=== PATIENT | male | born 1955 | race Caucasian/White ===

== ENCOUNTER 2017-12-26 08:35 | Inpatient (IN) | payer OTHER ==
[~2017-12-26] VITALS: Ht 180.3 cm; Wt 95.0 kg
[2017-12-26] MEDS ORDERED: FOLIC ACID1 M1 PO (09:52)
[2017-12-26] MEDS ORDERED: PANTOPRAZOLE SO40 M1 PO (09:53)
[2017-12-26] MEDS ORDERED: B-1100 MG PO (09:53)
[2017-12-26] MEDS ORDERED: AMLODIPINE BESY10 M1 PO (09:53)
[2017-12-26] MEDS ORDERED: ATORVASTATIN CA80 M1 PO (09:54)
[2017-12-26] MEDS ORDERED: ASPIRIN EC81 M1 PO (09:54)
[2017-12-26] MEDS ORDERED: CARVEDILOL12.5 M1 PO (09:54)
[2017-12-26] MEDS ORDERED: BRILINTA90 M1 PO (09:54)
[2017-12-26] MEDS ORDERED: LISINOPRIL40 M1 PO (09:55)
[2017-12-26] MEDS ORDERED: LEVOTHYROXINE100 MC1 PO (09:55)
[2017-12-26] MEDS ORDERED: ESCITALOPRAM OX10 MG PO (09:55)
[2017-12-26] MEDS ORDERED: SPIRONOLACTONE25 M1 PO (09:56)
--- NOTE | 2017-12-26 10:02 | ED GI/GU/ABDOMINAL COMPLAINT ---
History of Present Illness General Chief Complaint: Abdominal Pain/Flank Pain Stated Complaint: BIBA ABD PAIN Source: patient Exam Limitations: no limitations Vital Signs & Intake/Output Vital Signs & Intake/Output Vital Signs Date Time Temp Pulse Resp B/P B/P Pulse O2 O2 Flow FiO2 Mean Ox Delivery Rate 12/28 1105 52 156/78 12/28 0817 44 168/98 12/28 0817 44 168/98 12/28 0817 44 168/98 12/28 0733 97.4 31 16 112/64 98 12/27 2109 97.9 44 18 170/80 99 Room Air 12/27 1445 97.7 64 20 142/80 100 Room Air ED Intake and Output 12/28 0000 12/27 1200 Intake Total 2790 1720 Output Total Balance 2790 1720 Intake, IV 2430 1600 Intake, Oral 360 120 Number 6 Bowel Movements Patient 210 lb Weight Allergies Coded Allergies: No Known Allergies (12/26/17) Reconcile Medications Amlodipine Besylate 10 MG TABLET 1 TAB PO DAILY HEART (Reported) Aspirin (Ecotrin*) 81 MG TABLET.DR 1 TAB PO DAILY HEART HEALTH (Reported) Atorvastatin Calcium 80 MG TABLET 1 TAB PO DAILY CHOLESTEROL (Reported) Carvedilol 12.5 MG TABLET 1 TAB PO BID HEART (Reported) Escitalopram Oxalate 10 MG TABLET 1 TAB PO DAILY MENTAL HEALTH (Reported) Folic Acid 1 MG TABLET 1 TAB PO DAILY VITAMIN SUPPORT (Reported) Levothyroxine Sodium 100 MCG TABLET 1 TAB PO DAILY AC THYROID (Reported) Lisinopril 40 MG TABLET 0.5 TAB PO DAILY HEART (Reported) Pantoprazole Sodium 40 MG TABLET.DR 1 TAB PO DAILY ACID REFLUX (Reported) Spironolactone 25 MG TABLET 1 TAB PO BID WATER RETENTION (Reported) Thiamine HCl (B-1) 100 MG TABLET 1 TAB PO DAILY VITAMIN SUPPORT (Reported) Ticagrelor (Brilinta) 90 MG TABLET 1 TAB PO BID BLOOD THINNER (Reported) Triage Note: PT BIBA TO TRIAGE FOR ABD PAIN. PT STATES HE WAS ADMITTED AT [facility] FOR PANCREATITIS, WAS DISCHARGED HOME. SINCE BEING HOME HAS HAD CONTINUED ABD PAIN WITH N/V/D. Triage Nurses Notes Reviewed? yes Onset: Gradual Duration: week(s): Timing: recent history Quality/Severity: moderate Location: periumbilical HPI: 62-year-old male with history of alcoholism, hypertension presents emergency department complaining of persistent abdominal pain, nausea, vomiting, diarrhea since discharge from [facility] yesterday. Patient states he was admitted at [facility] for 6 days for alcohol detox. Patient states that they told him he had pancreatitis at that time as well. He states he has not been able to tolerate PO for greater than 6 days. Patient states that yesterday when they discharged him he did not feel ready to go home as he was still not tolerating PO. Patient states he went home and had persistent symptoms and then presented here to the emergency department. No history of pancreatitis in the past. He denies physical consumption since prior to his visit at [facility]. He denies fevers, chills. (Lenore Yo) Past History Travel History Traveled to [facility] past 21 day No Medical History Any Pertinent Medical History? see below for history Cardiovascular: hypertension, hyperlipidemia, myocardial infarction Gastrointestinal: pancreatitis Surgical History Surgical History: non-contributory Psychosocial History What is your primary language Portuguese Tobacco Use: Quit >30 days ago ETOH Use: denies use Illicit Drug Use: denies illicit drug use Family History Hx Contributory? No (Lenore Yo) Review of Systems Review of Systems Constitutional: Reports: no symptoms. EENTM: Reports: no symptoms. Respiratory: Reports: no symptoms. Cardiovascular: Reports: no symptoms. GI: Reports: see HPI. Genitourinary: Reports: no symptoms. Musculoskeletal: Reports: no symptoms. Skin: Reports: no symptoms. Neurological/Psychological: Reports: see HPI. Hematologic/Endocrine: Reports: no symptoms. Immunologic/Allergic: Reports: no symptoms. All Other Systems: Reviewed and Negative (Lenore Yo) Physical Exam Physical Exam General Appearance: well developed/nourished, no apparent distress, alert, awake Head: atraumatic, normal appearance Eyes: Bilateral: normal appearance. Ears, Nose, Throat, Mouth: hearing grossly normal Neck: normal inspection, supple, full range of motion Respiratory: normal breath sounds, no respiratory distress, lungs clear Cardiovascular: regular rate/rhythm Gastrointestinal: normal bowel sounds, soft, no organomegaly, periumbilical tenderness, no ecchymosis Back: normal inspection, normal range of motion Extremities: normal range of motion Neurologic/Psych: awake, alert, oriented x 3 Skin: intact, normal color, warm/dry Core Measures ACS in differential dx? No Sepsis Present: No Sepsis Focused Exam Completed? No (Margie PRADOLenore Benz) Progress Differential Diagnosis: bowel obstruction, cholecystitis, gastritis, hepatitis, hernia, inflamm bowel dis, pancreatitis, peptic ulcer, PUD/GERD, SBO Plan of Care: Orders Procedure Date/time Status Lab Add-on Test 12/28 599 Active Current Medications Sig/Juanita Start time Last Medication Dose Stop Time Status Admin Belladonna Alkaloids/ 1 TAB FOUR TIMES A DAY 12/27 2100 AC 12/28 Phenobarbital 1002 () Pantoprazole Sodium 40 MG BID 12/27 2100 AC 12/28 (Protonix) 0817 Sucralfate 1,000 MG 4 TIMES/DAY 12/27 2100 AC 12/28 (Carafate) 0819 Magnesium Chloride 64 MG DAILY 12/27 1615 AC 12/28 (Slow-Mag) 0819 Amlodipine Besylate 10 MG DAILY 12/27 0900 AC 12/28 (Norvasc) 0817 Aspirin Buffered 81 MG DAILY 12/27 0900 AC 12/27 (Ecotrin) 0902 Atorvastatin Calcium 80 MG DAILY 12/27 0900 AC 12/28 (Lipitor) 0819 Enoxaparin Sodium 40 MG DAILY 12/27 0900 AC 12/27 (Lovenox) 0859 Escitalopram Oxalate 10 MG DAILY 12/27 0900 AC 12/28 (Lexapro) 0819 Folic Acid 1 MG DAILY 12/27 0900 AC 12/28 (Folic Acid) 0819 Lisinopril 20 MG DAILY 12/27 0900 AC 12/28 (Prinivil) 0817 Thiamine HCl 100 MG DAILY 12/27 0900 AC 12/28 (Vitamin B1) 0819 Levothyroxine Sodium 0.1 MG DAILY AC 12/27 0700 AC 12/28 (Synthroid) 0500 Carvedilol 12.5 MG BID 12/26 2100 AC 12/27 (Coreg) 0902 Melatonin 5 MG AT BEDTIME 12/26 2100 AC 12/27 (Melatonin) 2040 Spironolactone 25 MG BID 12/26 2100 AC 12/28 (Aldactone) 0819 Ticagrelor 90 MG BID 12/26 2100 AC 12/27 (Brilinta) 2040 Acetaminophen 1,000 MG Q8P PRN 12/26 1445 AC 12/28 (Ofirmev) 1123 Lactated Ringer's 1,000 ML Q6H 12/26 1445 AC 12/28 (Lactated Ringers) 0810 Ondansetron HCl 4 MG Q6P PRN 12/26 1445 12/28 (Zofran) 1059 Laboratory Tests 12/28/17 1141: Anion Gap 17 H, Estimated GFR > 60, BUN/Creatinine Ratio 7.5, Magnesium 1.0 L Patient's labs show elevated lipase greater than 3 times up her normal limit. This is consistent with pancreatitis. Patient reports no history of previous pancreatitis. Patient has already gone through alcohol detox. The patient is not tolerating PO, cannot take his home medication, persistent abdominal pain, vomiting, diarrhea. Given these findings hospital admission is necessary for further IV fluids, IV antiemetics, possible GI consult, repeat labs. Spoke with Dr. Stover regarding general medicine admission Diagnostic Imaging: Viewed by Me: CT Scan. Discussed w/RAD: CT Scan. Radiology Impression: PATIENT: RAVEN CUELLAR PRESENT AGE: 62 PATIENT ACCOUNT NO: [id number] : 55 LOCATION: [facility] ORDERING PHYSICIAN: Lenore PRADO SERVICE DATE: 12/26/17 EXAM TYPE: CAT - CT ABD & PELVIS W IV CONTRAST EXAMINATION: CT ABDOMEN AND PELVIS WITH CONTRAST CLINICAL INFORMATION: Umbilical abdominal pain. Elevated lipase. Presumptive diagnosis of rule out pancreatitis, cholecystitis. COMPARISON: None. TECHNIQUE: Multidetector CT volumetric acquisition of the abdomen and pelvis was performed after the administration of 95 mL of Optiray 320. The data set was reformatted in the sagittal and coronal planes and reviewed on an independent workstation. DLP: 571.06 mGy-cm. FINDINGS: LOWER CHEST: Included lung bases unremarkable. LIVER, GALLBLADDER, BILIARY TREE: Liver normal size and attenuation. No focal cystic or solid mass or intra-or extrahepatic ductal dilatation. Hepatic and portal veins patent. Gallbladder partially distended and within normal limits. Gallbladder wall measures up to 2 mm in thickness. No pericholecystic fluid is seen and no radiopaque calculi are seen within the gallbladder. PANCREAS: Normal. No ductal dilatation, mass, or peripancreatic stranding. SPLEEN: Normal size and there is a 0.8 cm low-attenuation mass in the inferior aspect of the spleen (series 2, image 34), too small to further characterize but possibly a small cyst. Splenic vein patent. ADRENAL GLANDS AND KIDNEYS: Adrenal glands normal. Kidneys bilaterally symmetric in size and function. There is a 1.1 cm mid left renal cortical low-attenuation mass (series 2, image 34) with mean attenuation values of 20.7 Hounsfield units. This is indeterminate in etiology and may represent a hyperdense cyst. In addition, in the lower pole of the right kidney, a 0.9 cm fluid attenuation mass is seen, consistent with a cyst. No suspicious focal mass, hydronephrosis, nephrolithiasis or perinephric stranding. URETERS AND BLADDER: Ureters decompressed and within normal limits. Bladder completely decompressed and not adequately assessed. PELVIC ORGANS: Unremarkable. GASTROINTESTINAL TRACT: Normal. Small and large bowel loops decompressed. Appendix in right lower quadrant is at the upper limits of normal, measuring up to 7 mm in cross-sectional diameter. No periappendiceal fat stranding or edema is noted. The appendix is fluid-filled. No appendicolith is seen. LYMPHOVASCULAR STRUCTURES: Abdominal aorta normal in caliber. No periaortic collections. Moderate atherosclerotic calcifications of the abdominal aorta and branch vessels, including the renal arteries bilaterally is seen. No abdominal or pelvic adenopathy or free fluid collection. BONES: Moderate vertebral spondylosis is seen in the lower thoracic spine and in the mid and lower lumbar spine. Moderate degenerative disc disease is seen at L4-L5 and L5- S1. Moderate facet arthropathy is seen. There is a small focal cortical defect in the right iliac bone, most consistent with prior bone harvesting site. IMPRESSION: 1. No evidence of acute pancreatitis. The pancreas appears unremarkable. 2. No evidence of acute cholecystitis. No radiopaque calculi are seen and no biliary dilatation is noted. Gallbladder wall thickness is borderline normal. 3. Small low-attenuation mass in the inferior spleen, too small to characterize, possibly a small cyst. 4. Benign right renal cyst. Additional indeterminate 1.1 cm mid left renal mass is seen, possibly a hyperdense cyst. Further assessment with renal ultrasound can be attempted. If that is unsuccessful, or if the mass remains uncharacterized, further assessment with MRI scan will be needed. 5. Moderate atherosclerotic vascular calcifications. DICTATED BY: Darling MAYFIELD,Bibi Herrera DATE/TIME DICTATED:12/26/171399 LIE DETECTOR OPERATOR:LEXIS DATE/TIME TRANSCRIBED:12/26/171399 CONFIDENTIAL, DO NOT COPY WITHOUT APPROPRIATE AUTHORIZATION. <Electronically signed in Other Vendor System> SIGNED BY: Bibi Hastings MD N. 12/26/17 1434 Initial ED EKG: none (Lenore Yo) Departure Departure Disposition: STILL A PATIENT Condition: Stable Clinical Impression Primary Impression: Alcoholic pancreatitis Qualifiers: Chronicity: acute Acute pancreatitis complication: unspecified Qualified Code: K85.20 - Alcohol induced acute pancreatitis without necrosis or infection Secondary Impressions: Abdominal pain Qualifiers: Abdominal location: periumbilical Qualified Code: R10.33 - Periumbilical pain Hypokalemia Nausea vomiting and diarrhea Referrals: Patient Has No Primary Care Dr (PCP/Family) Departure Forms: Customer Survey General Discharge Information Admission Note Spoke With: Peter Stover MD Documentation of Exam: Documentation of any treatments & extenuating circumstances including Concerns Regarding Discharge (functional status, medication knowledge or non-compliance, living conditions, etc.) that warrant an admission rather than observation: [ Alcoholic pancreatitis with intractable abdominal pain, nausea, vomiting, diarrhea, patient is not tolerating PO, cannot take his home meds, requires IV fluids, IV anti-medics, possible GI consult, premature discharge medically unsafe] (Lenore Yo) PA/[employer] DES[employer] Co-Sign Statement Statement: ED Attending supervision documentation- [] I saw and evaluated the patient. I have also reviewed all the pertinent lab results and diagnostic results. I agree with the findings and the plan of care as documented in the PA's/[employer] DES[employer]ER's documentation. [X] I have reviewed the ED Record and agree with the PA's/[employer] DESIGN[employer]'s documentation. [] Additions or exceptions (if any) to the PAs/[employer] DESIGNER's note and plan are summarized below: [] (Dain Pleitez DO) PA/[employer] Co-Sign Statement Statement: ED Attending supervision documentation- [] I saw and evaluated the patient. I have also reviewed all the pertinent lab results and diagnostic results. I agree with the findings and the plan of care as documented in the PA's/[employer] DESIGNER's documentation. [X] I have reviewed the ED Record and agree with the PA's/[employer] DESIGNER's documentation. [] Additions or exceptions (if any) to the PAs/[employer] DESIGNER's note and plan are summarized below: [] (Dain Pleitez DO)
[2017-12-26 11:04] LABS: ABSOLUTE BASOPHIL COUNT 0 /CUMM (0.0-0.2); ABSOLUTE EOSINOPHIL COUNT 0.2 /CUMM (0.0-0.7); ABSOLUTE LYMPH COUNT 1.4 /CUMM (1.2-3.4); ABSOLUTE MONOCYTE COUNT 1.4 /CUMM (0.10-0.60); BASOPHIL % 0.2 % (0.0-2.0); EOSINOPHIL % 1.8 % (0-5); GRANULOCYTE % 76.7 % (42.2-75.2); HEMATOCRIT 38.7 % (42-52); MEAN CORPUSCULAR HGB 32.2 PG (27.0-31.0); MEAN CORPUSCULAR HGB CONC 33.4 G/DL (33.0-37.0); MEAN CORPUSCULAR VOLUME 96.2 FL (80.0-94.0); MEAN PLATELET VOLUME 8.2 FL (7.4-10.4); PLATELET COUNT 235 /CUMM (130-400); RBC DISTRIBUTION WIDTH 16.8 % (11.5-14.5); RED BLOOD CELL CT 4.03 /CUMM (4.70-6.10)
--- NOTE | 2017-12-26 13:53 | History & Physical ---
Yumiko Sheppard 12/26/17 1353: General Information and HPI MD Statement: I have seen and personally examined RAVEN CUELLAR and documented this H&P. The patient is a 62 year old M who presented with a patient stated chief complaint of []. Source of Information: patient Exam Limitations: no limitations History of Present Illness: 62 year old male with PMH HTN, HLD, MS (2016 with stenting x2 on ASA and Brilinta) presents after being hospitalized at [facility] for 7 days for presumed treatment of pancreatitis and etoh detox. He was discharged yesterday 12/25 at 17:00 despite feeling that he wasn't well enough to go home. Prior to that admission, he states he had been drinking heavily and experiencing abdominal pain with n/v. He wanted to detox from alcohol and he was advised to go to the ED at [facility]. He was admitted and states he did not eat for 7 days because he could not tolerate liquids or regular food without severe n/v and abdominal pain. He also complains of watery, non-bloody diarrhea that has been present for >7days. He denies any antibiotic use within the last 2 months. While in the hospital, he was detoxed from alcohol with ativan taper. On 12/25 he was told an US was negative for any pathology and his blood work 'looked good'. Upon discharge he states he went home and stayed on the couch watching TV. At 3am he woke up with severe n/v and abdominal pain which has been constant until coming to [place] ED and receiving IV tylenol. He denies any alcohol consumption since being discharged from [facility]. He has been unable to tolerate even water and has decreased appetite. He denies fever, chills, cough, headache, dysuria. Allergies/Medications Allergies: Coded Allergies: No Known Allergies (12/26/17) Home Med list Amlodipine Besylate 10 MG TABLET 1 TAB PO DAILY HEART (Reported) Aspirin (Ecotrin*) 81 MG TABLET.DR 1 TAB PO DAILY HEART HEALTH (Reported) Atorvastatin Calcium 80 MG TABLET 1 TAB PO DAILY CHOLESTEROL (Reported) Carvedilol 12.5 MG TABLET 1 TAB PO BID HEART (Reported) Escitalopram Oxalate 10 MG TABLET 1 TAB PO DAILY MENTAL HEALTH (Reported) Folic Acid 1 MG TABLET 1 TAB PO DAILY VITAMIN SUPPORT (Reported) Levothyroxine Sodium 100 MCG TABLET 1 TAB PO DAILY AC THYROID (Reported) Lisinopril 40 MG TABLET 0.5 TAB PO DAILY HEART (Reported) Pantoprazole Sodium 40 MG TABLET.DR 1 TAB PO DAILY ACID REFLUX (Reported) Spironolactone 25 MG TABLET 1 TAB PO BID WATER RETENTION (Reported) Thiamine HCl (B-1) 100 MG TABLET 1 TAB PO DAILY VITAMIN SUPPORT (Reported) Ticagrelor (Brilinta) 90 MG TABLET 1 TAB PO BID BLOOD THINNER (Reported) Past History Travel History Traveled to [place] past 21 day No Medical History Cardiovascular: hypertension, hyperlipidemia, myocardial infarction Gastrointestinal: pancreatitis Surgical History Surgical History: cervical surgeries x4 with hardware placement Past Family/Social History Psychosocial History Where do you live? Home Services at Home: None Primary Language: [place] Smoking Status: Former Smoker (quit post MS in 2016) ETOH Use: alcoholic Illicit Drug Use: heroin, h/o heroin use 25 years ago. Opiod pill addiction Employment History Employment Retired Review of Systems Review of Systems Constitutional: Denies: chills, fever, malaise. EENTM: Denies: blurred vision, visual changes. Cardiovascular: Denies: chest pain, edema, palpitations. Respiratory: Reports: short of breath. Denies: cough, sputum production. GI: Reports: abdominal pain, diarrhea, nausea, vomiting. Denies: bloating, constipation. Genitourinary: Denies: dysuria, hematuria, pain. Musculoskeletal: Reports: no symptoms. Skin: Reports: no symptoms. Neurological/Psychological: Reports: no symptoms. Exam & Diagnostic Data Last 24 Hrs of Vital Signs/I&O Vital Signs Date Time Temp Pulse Resp B/P B/P Pulse O2 O2 Flow FiO2 Mean Ox Delivery Rate 12/26 1145 88 20 118/74 99 Room Air 12/26 0845 98.6 94 20 114/76 99 Room Air Intake & Output 12/26 1600 12/26 0800 12/26 0000 Intake Total 0 Output Total Balance 0 Intake, Oral 0 Number 5 Bowel Movements Patient 200 lb Weight Weight Estimated Measurement Method Physical Exam General Appearance Alert, Oriented X3, Cooperative, No Acute Distress Skin No Rashes, ecchymosis BUE including dorsum of hands Skin Temp/Moisture Exam: Warm/Dry HEENT Atraumatic, PERRLA Neck Supple Cardiovascular Regular Rate, Normal S1, Normal S2, No Murmurs Lungs Clear to Auscultation Abdomen Normal Bowel Sounds, Soft, ttp LUQ;periumbilical area Extremities No Edema, Normal Pulses Assessment/Plan Assessment: 62 year old male with PMH HTN, HLD, MS (2016 with stenting x2 on ASA and Brilinta) presents after being hospitalized at [facility] for 7 days for presumed treatment of pancreatitis and etoh detox. He was discharged 12/25 at 17:00 with return of symptoms: n/v/d and abdominal pain at 3am 12/26 for which he came to [place] ED. Work up in the ED shows elevated amylase and lipase, hypokalemia and negative for EtoH. CT abd/pelv is negative for acute pancreatitis or cholecystitis. Patient has clinical presentation and laboratory values consistent with pancreatitis and concerning for concomitant possible c-diff infection. Patient will be admitted to general medicine service for further care of the following problems: Problem List: 1. Acute Pancreatitis 2. Persistent diarrhea 3. Hypokalemia Admission Data: T98.6 P94 RR20 BP114/76 [id number] Significant Labs: WBC 13.0, K3.3, T. Bili 1.4, Amylase 223, Lipase 2797, EtoH<10 CT abd/pelv:1. No evidence of acute pancreatitis. The pancreas appears unremarkable. 2. No evidence of acute cholecystitis. #Acute pancreatitis-likely 2/2 alcohol use disorder vs hypertriglyceridemia vs idiopathic -IVF hydration -NPO -Pain control: IV tylenol, Ketorolac (will reserve opiate use as last resort given patient's h/o opiod abuse including IV heroin and methadone) -Triglyceride level 300s (making this as etiology of pancreatitis less likely since <500) -Will obtain baseline EKG for QT status in anticipation of antiemetic use -Will obtain records from [facility] for recent hospitalization #Persistent diarrhea-possible c-diff vs gastritis -stool culture and c-diff toxin -IVF hydration -monitor electrolytes for possible dehydration #Hypokalemia-likely 2/2 >7days of diarrhea -monitor and replete as necessary #Social issues for etoh abuse - consult for desired rehab placement -Alcohol abuse: no need for benzodiazepine or concern for withdrawal given recent ativan taper detox regimen at [facility] for the past 7 days Diet: NPO DVT prophylaxis: ALPS/ambulation/lovenox Code status: FC As Ranked By This Provider Problem List: 1. Abdominal pain Qualifiers Abdominal location: periumbilical Qualified Code: R10.33 - Periumbilical pain 2. Nausea vomiting and diarrhea 3. Hypokalemia 4. Pancreatitis Core Measures/Misc (02/18) Acute Coronary Syndrome ACS Diagnosis: No Congestive Heart Failure Congestive Heart Failure Diagnosis No Cerebrovascular Accident CVA/TIA Diagnosis: No VTE (View Protocol) VTE Risk Factors Age>40 No Mechanical VTE Prophylaxis d/t N/A MechProphylax Ordered No VTE Pharm Prophylaxis d/t NA PharmProphylax ordered Sepsis (View protocol) Sepsis Present: No If YES complete Sepsis Event Note If YES complete Sepsis Event Note Cris [place],[facility] 12/26/17 1446: Core Measures/Misc (02/18) Sepsis (View protocol) If YES complete Sepsis Event Note If YES complete Sepsis Event Note Resident Review Statement Resident Statement: examined this patient, discussed with internet marketing strategist, agreed with internet marketing strategist, discussed with family, reviewed EMR data (avail), discussed with nursing , discussed with case mgmt, reviewed images, amended to note Other Findings: Mr. Cuellar is a 62-year-old male with past medical history of alcoholism, IV drug abuse, hypertension, hyperlipidemia, and myocardial infarction status post stents who presents with abdominal pain. The patient was discharged from [facility] yesterday after being detoxed from alcohol. The patient was at [facility] for about 1 week was treated with Lorazepam for his detox. The patient says he was discharged yesterday despite not feeling well and not tolerating a diet. He says that they did a workup for pancreatitis that was negative. After he went home yesterday, he went to bed and then woke up at 3 AM with "ripping" abdominal pain. He denies using any alcohol since discharge. He had previously drank 1-2 pints of vodka per day. Patient was previously on methadone but stopped going to the clinic in November because he had issues with how they treated him. He then used alcohol to treat his pain. Patient further describes profuse watery diarrhea, nausea, and vomiting including dry heaving. He denies any dysuria. He is a former smoker and has a history of IV drug abuse in his 20s. On presentation, vital signs were T 98.6, HR 94, RR 20, BP 114/76, saturating 90 % on room air. General: Patient appears stated age, alert and orientedx3. HEENT: PERRL. No goiter. No palpable lymph nodes. Cardiovascular: Regular rate and rhythm, no murmurs, rubs, or gallops. Lungs: Clear to auscultation bilaterally. Abdomen: Normal bowel sounds. Tenderness to palpation periumbilically skin: No rashes. Neuro: CN II-XII intact without any focal deficits. Ext: No edema, pulses normal. Laboratories were significant for WBC 13.0, hemoglobin 12.9, MCV 96.2, potassium 3.3, glucose 156, total bilirubin 1.4, LFTs otherwise negative, lipase 2797. CT abdomen/pelvis is no evidence of acute pancreatitis or acute cholecystitis with incidental cyst on spleen and kidney.. He will be admitted to general medicine and treated for the following problems: 1. Acute pancreatitis 2. Watery diarrhea #Acute pancreatitis: Patient has history of alcohol abuse status post discharge from [facility] after being treated for alcohol withdrawal and detoxification now presenting with acute worsening of abdominal pain, elevated lipase, but negative imaging for acute pancreatitis. Overall, his signs and symptoms point to pancreatitis despite the negative imaging. He is nontoxic without signs of complications at this time. -IV fluid hydration -Pain control -N.p.o. -Ondansetron #Watery diarrhea: Patient has history of profuse watery diarrhea. Despite not receiving antibiotics, this recent hospitalization puts him at risk for C. difficile versus other infectious etiology. -C. difficile and stool culture -IV fluid hydration as above #Chronic medical problems -Continue other home medications -Consider social work consult for alcohol abuse history and drug history DVT prophylaxis with enoxaparin N.p.o. Full code Peter Stover MD 12/26/17 4857: Core Measures/Misc (02/18) Sepsis (View protocol) If YES complete Sepsis Event Note If YES complete Sepsis Event Note Attending MD Review Statement Attending Statement Attending MD Statement: examined this patient, discuss w/resident/PA/SENIOR CLINICAL STUDY MANAGER, agreed w/resident/PA/SENIOR CLINICAL STUDY MANAGER, discussed with family, reviewed EMR data (avail), reviewed images, amended to note Attending Assessment/Plan: The patient veronica 62 yo male with h/o HTN, HL, CAD (s/p MS and stents x 2 2015), h /o EtOH dependence and abuse, former Methadone use (stopped 11/19) who presented in the [place] Ed with c/o abdominal pain, nausea/vomiting, and diarrhea that had been ongoing since being discharged from [facility] 12/25. His daughter is an RN at [employer] and advised him to come here as he was unable to keep down his medications, etc. At [facility] he had undergone alcohol detox and treatment for pancreatitis. His recent history included presentation at [facility] for residential IOP treatment (was there 1 day) with subsequent transfer to [facility] for detox and also ?cholecystitis. He went home and began drinking again and this lead to subsequent [facility] admission. He was receiving IV tylenol in ED and initially this helped his pain. Stated diarrhea continued. He denied fever, dyspnea, chest pain, or other symptoms. Physical Exam: VS: T 98.6, P 94, R 20, BP 114/76, PO 99% RA HEENT: eyes- PERRLA, EOMI, sclera- non-icteric marty- dry mucosa Neck: no JVD/+ Chest: diminished BS at bases Cor: RRR nl S1, S2 w/o murm Abd: BS+, softly distended, mild nikkie-umbilical tenderness w/o guarding/rebound (no RUQ/epigastric tenderness) Ext: no edema Neuro: alert & oriented x 3, non-focal exam Labs/Tests- as above Impression/Plan: #Abdominal Pain/Pancreatitis- as noted, lipase is elevated. No CT evidence of significant pancreatitis, however clinical picture fits. Plan: Admit to general medical service. IV hydration, NPO. CT abd/pelvis (done) GI Evaluation (Dr. Garza aware) #Diarrhea/Gastritis- patient has had significant diarrhea. No h/o recent antibiotics or exposures. Plan: Will check stool for C-diff and cultures, etc. As above, IV hydration. Zofran for nausea. #Hypokalemia- mild, secondary to vomiting/diarrhea. Plan: Replete potassium and follow. #h/o EtOH Dependence/Abuse- was detoxed at [facility] just prior to this admission. His social insurance analyst at [facility] ([facility]) had arranged detox program in [place] and subsequent halfway program. He was scheduled to go to [place] tomorrow. Plan: Social service consult at [place]- to communicate with his social insurance analyst at [facility] to coordinate outpatient program when stable from medical standpoint. Agree with thiamine, folic acid etc. #CAD/HTN/Hyperlipidemia- no c/o at present. Plan: Continue Lisinopril, Amlodipine, Atorvastatin, Carvedilol, Brilinta, Spironolactone, ASA. #Depression- ? bipolar. Unclear diagnosis at [facility]. Plan: Will obtain [facility] records. Continue Escitalopram. #Hypothyroid- on Levothyroxine. Plan: Continue Levothyroxine.
--- NOTE | 2017-12-26 14:34 | CT SCAN REPORT ---
EXAMINATION: CT ABDOMEN AND PELVIS WITH CONTRAST CLINICAL INFORMATION: Umbilical abdominal pain. Elevated lipase. Presumptive diagnosis of rule out pancreatitis, cholecystitis. COMPARISON: None. TECHNIQUE: Multidetector CT volumetric acquisition of the abdomen and pelvis was performed after the administration of 95 mL of Optiray 320. The data set was reformatted in the sagittal and coronal planes and reviewed on an independent workstation. DLP: 571.06 mGy-cm. FINDINGS: LOWER CHEST: Included lung bases unremarkable. LIVER, GALLBLADDER, BILIARY TREE: Liver normal size and attenuation. No focal cystic or solid mass or intra-or extrahepatic ductal dilatation. Hepatic and portal veins patent. Gallbladder partially distended and within normal limits. Gallbladder wall measures up to 2 mm in thickness. No pericholecystic fluid is seen and no radiopaque calculi are seen within the gallbladder. PANCREAS: Normal. No ductal dilatation, mass, or peripancreatic stranding. SPLEEN: Normal size and there is a 0.8 cm low-attenuation mass in the inferior aspect of the spleen (series 2, image 34), too small to further characterize but possibly a small cyst. Splenic vein patent. ADRENAL GLANDS AND KIDNEYS: Adrenal glands normal. Kidneys bilaterally symmetric in size and function. There is a 1.1 cm mid left renal cortical low-attenuation mass (series 2, image 34) with mean attenuation values of 20.7 Hounsfield units. This is indeterminate in etiology and may represent a hyperdense cyst. In addition, in the lower pole of the right kidney, a 0.9 cm fluid attenuation mass is seen, consistent with a cyst. No suspicious focal mass, hydronephrosis, nephrolithiasis or perinephric stranding. URETERS AND BLADDER: Ureters decompressed and within normal limits. Bladder completely decompressed and not adequately assessed. PELVIC ORGANS: Unremarkable. GASTROINTESTINAL TRACT: Normal. Small and large bowel loops decompressed. Appendix in right lower quadrant is at the upper limits of normal, measuring up to 7 mm in cross-sectional diameter. No periappendiceal fat stranding or edema is noted. The appendix is fluid-filled. No appendicolith is seen. LYMPHOVASCULAR STRUCTURES: Abdominal aorta normal in caliber. No periaortic collections. Moderate atherosclerotic calcifications of the abdominal aorta and branch vessels, including the renal arteries bilaterally is seen. No abdominal or pelvic adenopathy or free fluid collection. BONES: Moderate vertebral spondylosis is seen in the lower thoracic spine and in the mid and lower lumbar spine. Moderate degenerative disc disease is seen at L4-L5 and L5-S1. Moderate facet arthropathy is seen. There is a small focal cortical defect in the right iliac bone, most consistent with prior bone harvesting site. IMPRESSION: 1. No evidence of acute pancreatitis. The pancreas appears unremarkable. 2. No evidence of acute cholecystitis. No radiopaque calculi are seen and no biliary dilatation is noted. Gallbladder wall thickness is borderline normal. 3. Small low-attenuation mass in the inferior spleen, too small to characterize, possibly a small cyst. 4. Benign right renal cyst. Additional indeterminate 1.1 cm mid left renal mass is seen, possibly a hyperdense cyst. Further assessment with renal ultrasound can be attempted. If that is unsuccessful, or if the mass remains uncharacterized, further assessment with MRI scan will be needed. 5. Moderate atherosclerotic vascular calcifications.
[2017-12-26 17:16] VITALS: BP 144/68
[2017-12-26 21:18] VITALS: BP 136/70
--- NOTE | 2017-12-26 23:19 | Admission Certification ---
Admission Certification Certification Statement - As attending physician, I certify that at the time of - admission, based on clinical presentation, severity of - symptoms, need for further diagnostic testing and - therapeutic interventions, and risk of adverse outcomes - without in-hospital treatment, in my clinical assessment, - this patient requires an acute hospital stay for a minimum - of two nights or longer. I have also considered psychsocial - factors such as support system, advanced age, financial - issues, cognitive issues, and failed out-patient treatments, - past re-admission history, safety of patient, and lack of - compliance as applicable. Specific rationale supporting this admission is: The patient presents with abdominal pain c/w pancreatitis, gastritis/diarrhea- unable to keep down any meds, etc. Needs admission for IV hydration, NPO, GI eval, CT abd/pel, check stool for c-diff and cultures.
[2017-12-27 06:32] VITALS: BP 160/70
--- NOTE | 2017-12-27 08:13 | PN- Housestaff ---
See Addendum Subjective Follow-up For: acute pancreatitis Complaints: pain scale (0-10), 10/10 abdominal pain Subjective: Patient reports trying to drink broth last night and have n/v and severe abdominal pain. He states he continues to have 10/10 abdominal pain associated with nausea this morning. Denies fever, chills, chest pain, SOB. Review of Systems Constitutional: Reports: see HPI. Objective Last 24 Hrs of Vital Signs/I&O Vital Signs Date Time Temp Pulse Resp B/P B/P Pulse O2 O2 Flow FiO2 Mean Ox Delivery Rate 12/27 0902 56 168/78 12/27 0901 56 168/78 12/27 0900 56 168/12/27 0632 97.7 58 20 160/70 95 Room Air 12/26 2118 98.0 78 18 136/70 98 Room Air 12/26 2004 136/70 12/26 1716 97.6 81 18 144/68 99 Room Air 12/26 1635 98.2 68 20 147/79 99 Room Air 12/26 1145 88 20 118/74 99 Room Air Intake & Output 12/27 1600 12/27 0800 12/27 0000 Intake Total 1720 600 Output Total 600 Balance 1720 0 Intake, IV 1600 600 Intake, Oral 120 Number 1 Bowel Movements Output, Stool 300 Output, Urine 300 Patient 210 lb 200 lb Weight Weight Reported by Patient Measurement Method Physical Exam General Appearance: Alert, Oriented X3, Cooperative, No Acute Distress, patient laying in bed in NAD when I walked in the room though he reports 10/10 pain Skin: No Rashes Skin Temp/Moisture Exam: Warm/Dry HEENT: Atraumatic, PERRLA Neck: Supple Cardiovascular: Regular Rate, Normal S1, Normal S2, No Murmurs Lungs: Clear to Auscultation Abdomen: Normal Bowel Sounds, Soft, originally no TTP while I was interviewing him...then when I aske about abdominal pain and palpated, he guarded. Extremities: No Edema, Normal Pulses Assessment/Plan Assessment: 62 year old male with PMH HTN, HLD, [place] (2016 with stenting x2 on ASA and Brilinta) presents after being hospitalized at [facility] for 7 days for presumed treatment of pancreatitis and etoh detox. He was discharged 12/25 at 17:00 with return of symptoms: n/v/d and abdominal pain at 3am 12/26 for which he came to [place] ED. Work up in the ED shows elevated amylase and lipase, hypokalemia and negative for EtoH. CT abd/pelv is negative for acute pancreatitis or cholecystitis. Patient has clinical presentation and laboratory values consistent with pancreatitis and concerning for concomitant possible c-diff infection. Patient will be admitted to general medicine service for further care of the following problems: Problem List: 1. Acute Pancreatitis 2. Persistent diarrhea 3. Hypokalemia 4. Hypomagnesemia #Acute pancreatitis-likely 2/2 alcohol use disorder vs hypertriglyceridemia vs idiopathic -IVF hydration -NPO -Pain control: IV tylenol, Ketorolac (will reserve opiate use as last resort given patient's h/o opiod abuse including IV heroin and methadone) -Triglyceride level 300s (making this as etiology of pancreatitis less likely since <500) -Baseline EKG for QT status in anticipation of antiemetic use -Awaiting records from [facility] for recent hospitalization #Persistent diarrhea-possible c-diff vs gastritis -stool culture: pending -c-diff toxin: negative -IVF hydration -monitor electrolytes for possible dehydration: replete magnesium and potassium today #Hypokalemia-likely 2/2 >7days of diarrhea -monitor and replete as necessary -3.0 today; will give 40mEq K-dur #Social issues for etoh abuse - consult for desired rehab placement -Alcohol abuse: no need for benzodiazepine or concern for withdrawal given recent ativan taper detox regimen at [facility] for the past 7 days Diet: NPO DVT prophylaxis: ALPS/ambulation/lovenox Code status: FC Problem List: 1. Nausea vomiting and diarrhea 2. Abdominal pain 3. Pancreatitis 4. Hypokalemia 5. Hypomagnesemia Pain Ratin Pain Location: abdomen Pain Goal: Pain 7 or less Pain Plan: see a/p Tomorrow's Labs & Rationales: bep, magnesium
[2017-12-27 14:45] VITALS: BP 142/80
--- NOTE | 2017-12-27 19:31 | Cons- Gastroenterology ---
General Information and HPI Consulting Request Date of Consult: 12/27/17 Requested By: Peter Stover MD Reason for Consult: Abdominal pain, nausea, vomiting Allergies/Medications Allergies: Coded Allergies: No Known Allergies (12/26/17) Home Med List: Amlodipine Besylate 10 MG TABLET 1 TAB PO DAILY HEART (Reported) Aspirin (Ecotrin*) 81 MG TABLET. 1 TAB PO DAILY HEART HEALTH (Reported) Atorvastatin Calcium 80 MG TABLET 1 TAB PO DAILY CHOLESTEROL (Reported) Carvedilol 12.5 MG TABLET 1 TAB PO BID HEART (Reported) Escitalopram Oxalate 10 MG TABLET 1 TAB PO DAILY MENTAL HEALTH (Reported) Folic Acid 1 MG TABLET 1 TAB PO DAILY VITAMIN SUPPORT (Reported) Levothyroxine Sodium 100 MCG TABLET 1 TAB PO DAILY AC THYROID (Reported) Lisinopril 40 MG TABLET 0.5 TAB PO DAILY HEART (Reported) Pantoprazole Sodium 40 MG TABLET.DR 1 TAB PO DAILY ACID REFLUX (Reported) Spironolactone 25 MG TABLET 1 TAB PO BID WATER RETENTION (Reported) Thiamine HCl (B-1) 100 MG TABLET 1 TAB PO DAILY VITAMIN SUPPORT (Reported) Ticagrelor (Brilinta) 90 MG TABLET 1 TAB PO BID BLOOD THINNER (Reported) Current Medications: Current Medications Sig/Juanita Start time Last Medication Dose Route Stop Time Status Admin Acetaminophen 1,000 MG Q8P PRN 12/26 1445 AC 12/27 IV 0953 Amlodipine Besylate 10 MG DAILY 12/27 0900 AC 12/27 PO 0900 Aspirin Buffered 81 MG DAILY 12/27 0900 AC 12/27 PO 0902 Atorvastatin Calcium 80 MG DAILY 12/27 0900 AC 12/27 PO 0902 Carvedilol 12.5 MG BID 12/26 2100 AC 12/27 PO 0902 Enoxaparin Sodium 40 MG DAILY 12/27 0900 AC 12/27 SC 0859 Escitalopram Oxalate 10 MG DAILY 12/27 0900 AC 12/27 PO 0902 Folic Acid 1 MG DAILY 12/27 0900 AC 12/27 PO 0903 Ketorolac 15 MG Q6P PRN 12/26 1430 AC 12/27 Tromethamine IV 1644 Lactated Ringer's 1,000 ML Q6H 12/26 1445 AC 12/27 IV 1757 Levothyroxine Sodium 0.1 MG DAILY AC 12/27 0700 AC 12/27 PO 0603 Lisinopril 20 MG DAILY 12/27 0900 AC 12/27 PO 0901 Magnesium Chloride 64 MG DAILY 12/27 1615 AC 12/27 PO 1643 Magnesium Oxide 400 MG ONE ONE 12/27 1400 DC 12/27 PO 12/27 1401 1539 Melatonin 5 MG AT BEDTIME 12/26 2100 AC 12/26 PO 2117 Morphine Sulfate 4 MG .STK-MED ONE 12/27 0005 DC IM 12/27 0006 Morphine Sulfate 2 MG ONCE ONE 12/26 2330 DC 12/27 IV 12/26 2331 0007 Omeprazole 40 MG DAILY AC 12/27 0700 AC 12/27 PO 0604 Ondansetron HCl 4 MG Q6P PRN 12/26 1445 AC 12/27 IV 1848 Patient Medication 1 ED ONE ONE 12/27 1645 DC 12/27 Teaching ED 12/27 1646 1758 Potassium Chloride 40 MEQ ONCE ONE 12/27 1400 DC 12/27 PO 12/27 1401 1538 Potassium Chloride 60 MEQ ONCE ONE 12/27 1000 DC 12/27 PO 12/27 1001 1034 Spironolactone 25 MG BID 12/26 2100 AC 12/27 PO 0903 Thiamine HCl 100 MG DAILY 12/27 0900 AC 12/27 PO 0901 Ticagrelor 90 MG BID 12/26 2100 AC 12/27 PO 0954 Past History Travel History Traveled to [place] past 21 day No Medical History Neurological: migraine, peripheral neuropathy EENT: NONE Cardiovascular: hypertension, hyperlipidemia, myocardial infarction Respiratory: NONE Gastrointestinal: GERD, pancreatitis, umbilical hernia Hepatic: hepatitis C Renal: NONE Musculoskeletal: chronic back pain, gout Psychiatric: alcohol dependence, anxiety, bipolar disease, IV drug abuse, opioid dependence Endocrine: hypothyroidism Blood Disorders: NONE Cancer(s): NONE Surgical History Surgical History: cervical surgeries x4 with hardware placement 2 STENTS IN LAD 06/2016 Psychosocial History Where Do You Live? Home Services at Home: None Primary Language: [place] Smoking Status: Former Smoker (quit post [place] in 2016) ETOH Use: alcoholic Illicit Drug Use: heroin, h/o heroin use 25 years ago. Opiod pill addiction Employment History Employment: Retired Exam & Diagnostic Data Vital Signs and I&O Vital Signs Date Time Temp Pulse Resp B/P B/P Pulse O2 O2 Flow FiO2 Mean Ox Delivery Rate 12/27 1445 97.7 64 20 142/80 100 Room Air 12/27 0902 56 168/78 12/27 0901 56 168/78 07/26 0900 56 168/12/27 0632 97.7 58 20 160/70 95 Room Air 12/26 2118 98.0 78 18 136/70 98 Room Air 12/27 2003 136/70 Intake & Output 12/27 0400 12/26 0400 12/25 0400 Intake Total 1720 600 0 Output Total 600 Balance 1720 0 0 Intake, IV 1600 600 Intake, Oral 120 0 Number 1 5 Bowel Movements Output, Stool 300 Output, Urine 300 Patient 210 lb 200 lb 200 lb Weight Weight Reported by Patient Estimated Measurement Method Results Pertinent Lab Results: Laboratory Tests 12/27 12/26 12/26 0615 1917 1052 Chemistry Sodium (137 - 145 mmol/L) 139 139 Potassium (3.5 - 5.1 mmol/L) 3.0 L 3.3 L Chloride (98 - 107 mmol/L) 107 101 Carbon Dioxide (22 - 30 mmol/L) 19 L 22 Anion Gap (5 - 16) 13 16 BUN (9 - 20 mg/dL) 8 L 9 Creatinine (0.7 - 1.2 mg/dL) 0.9 0.9 Estimated GFR (>60 ml/min) > 60 > 60 BUN/Creatinine Ratio (7 - 25 %) 8.9 10.0 Glucose (65 - 99 mg/dL) 156 H Calcium (8.4 - 10.2 mg/dL) 9.4 Magnesium (1.6 - 2.3 mg/dL) 1.0 L Total Bilirubin (0.2 - 1.3 mg/dL) 1.4 H Direct Bilirubin (< 0.4 mg/dL) 0.5 H AST (17 - 59 U/L) 35 ALT (21 - 72 U/L) 42 Alkaline Phosphatase (< 127 U/L) 99 Total Protein (6.3 - 8.2 g/dL) 7.6 Albumin (3.5 - 5.0 g/dL) 4.4 Globulin (1.9 - 4.2 gm/dL) 3.2 Albumin/Globulin Ratio (1.1 - 2.2 %) 1.4 Triglycerides (<150 mg/dL) 338 H Amylase (30 - 110 U/L) 223 H Lipase (23 - 300 U/L) 2797 H Hematology CBC w Diff NO MAN DIFF REQ WBC (4.8 - 10.8 /CUMM) 13.0 H RBC (4.70 - 6.10 /CUMM) 4.03 L Hgb (14.0 - 18.0 G/DL) 12.9 L Hct (42 - 52 %) 38.7 L MCV (80.0 - 94.0 FL) 96.2 H MCH (27.0 - 31.0 PG) 32.2 H MCHC (33.0 - 37.0 G/DL) 33.4 RDW (11.5 - 14.5 %) 16.8 H Plt Count (130 - 400 /CUMM) 235 MPV (7.4 - 10.4 FL) 8.2 Gran % (42.2 - 75.2 %) 76.7 H Lymphocytes % (20.5 - 51.1 %) 10.8 L Monocytes % (1.7 - 9.3 %) 10.5 H Eosinophils % (0 - 5 %) 1.8 Basophils % (0.0 - 2.0 %) 0.2 Absolute Granulocytes (1.4 - 6.5 /CUMM) 10.0 H Absolute Lymphocytes (1.2 - 3.4 /CUMM) 1.4 Absolute Monocytes (0.10 - 0.60 /CUMM) 1.4 H Absolute Eosinophils (0.0 - 0.7 /CUMM) 0.2 Absolute Basophils (0.0 - 0.2 /CUMM) 0 Toxicology Urine Opiates Screen (>2000 NG/ML) < 100 Methadone Screen (>300 NG/ML) 59 Barbiturate Screen (>200 NG/ML) 442 H Ur Phencyclidine Scrn (>25 NG/ML) < 6.00 Amphetamines Screen (>1000 NG/ML) < 100 U Benzodiazepines Scrn (>200 NG/ML) > 800 H Urine Cocaine Screen (>300 NG/ML) < 50 Urine Cannabis Screen (>50 NG/ML) < 5.00 Serum Alcohol (<10 MG/DL) < 10.0 Assessment/Plan Assessment/Recommendations: Acute onset periumbilical (essentially above the umbilicus) pain, with nausea and vomiting. According to the patient, he did not have significant antecedent GI symptoms except for occasional nausea with drinking excessive alcohol. Elevated pancreatic enzymes, but with no evident pancreatic pathology on imaging. Possibility of alcoholic gastritis, penetrating ulcer, early chronic pancreatitis, etc. Also with diarrhea despite being nothing by mouth, suggesting a secretory process. Recommendations * IV PPI twice a day * Sucralfate 1 g by mouth 4 times a day * 1 tab by mouth 4 times a day * EGD tomorrow; nothing by mouth after midnight * Await stool C. difficile. Check fecal pancreatic elastase. * Await records from [facility] hospitalization Consult Acknowledgment - Thank you for your consult request.
[2017-12-27 21:09] VITALS: BP 170/80
[2017-12-28 07:33] VITALS: BP 112/64
[2017-12-28 11:05] VITALS: BP 156/78
--- NOTE | 2017-12-28 13:58 | Proc Note Endoscopy ---
Endoscopy Procedure Medical History: unchanged Mental Status: alert/oriented Heart/Lung Eval Prior to Sedation: within normal limits Candidate for Sedation? Yes Procedure Date: 12/28/17 Procedure Type: EGD Director Of Group Sales: MD Stahl Deborah E. ASA Classification: III Indications: 1. Nausea and vomiting 2. Epigastric pain 3. History of alcohol abuse Instrument: diagnostic gastroscope Meds Received: MAC Patient's Tolerance: good Complications: none Extent Reached: second part of duodenum Procedure: Note: Informed consent was obtained prior to procedure. Risks and benefits of procedure were discussed with patient. Potential complications discussed included perforation, bleeding, abdominal pain, and adverse reaction to medications. It was explained that iany or all of these complications could result in the need for extended hospitalization, emergency surgery, transfusion of packed red blood cells (with the risk of HIV or hepatitis virus), intubation with mechanical ventilation, and possible need for antibiotics. It was further explained that an existing tumor polyp or mucosal abnormality might not be identified at the time of the procedure thus resulting in a missed opportunity for early diagnosis and treatment of a gastrointestinal malignancy or disease with possible interval development of a gastrointestinal cancer or other disease with possible worsening of clinical condition in the interval between endoscopies. It was also discussed that complications are not limited to those listed above. Possible alternatives to endoscopic treatment or evaluation were discussed. All questions were answered. Continuous EKG and blood pressure monitors were attached. Supplemental oxygen was provided with O2 Sat monitoring. Patient was placed in the left lateral decubitus position. A surgical timeout was performed. All persons in the room were identified. All concerns were expressed and answered. A bite block was placed in the mouth and sedation was administered by anesthesia and titrated to comfort prior to starting the procedure. The Olympus upper endoscope was advanced under direct vision to the level of the third portion of the duodenum. Esophagus: The esophagus had a normal mucosal vascular pattern throughout its entirety. The GE junction was identified and was normal. The Z line was located at 37 cm from the incisors and was nondisplaced Stomach: The stomach had a normal mucosal and vascular pattern throughout its entirety. Retroflexed view of the cardiofundic region revealed a normal mucosal and vascular pattern. There were normal rugae and normal distensibility. The pylorus was patent and easily intubated. There was mild nodularity in the fundus which is not entirely consistent with portal hypertensive gastropathy and is likely of little clinical significance. There was one prominent fold on retroflexed view that had a somewhat vascular and bulbous appearance which did not efface with air insufflation and which may represented an isolated gastric varix. Duodenum: The duodenum was fully examined from bulb down to the third portion. There was a normal mucosal vascular pattern throughout. With the endoscope in the forward-viewing position, it was slowly withdrawn and all areas were re-inspected and findings are as described previously. Patient tolerated the procedure well. EBL: Minimal Specimens Removed: None Findings: Possible isolated gastric varix Otherwise normal upper endoscopy Impression: Possible isolated gastric varix Otherwise normal upper endoscopy Recommendations: 1. Obtain gastric emptying study 2. Advance diet as tolerated 3. Will review records from [facility] 4. Protonix 40 mg by mouth every morning 5. Consider HIDA scan with CCK given gallbladder wall thickening 6. May consider obtaining ultrasound of the gallbladder prior to HIDA scan as CT is relatively insensitive for gallstones.
[2017-12-28 15:00] VITALS: BP 142/86
--- NOTE | 2017-12-28 15:24 | PN- Housestaff ---
See Addendum Subjective Follow-up For: abdominal pain pancreatitis diarrhea Complaints: pain scale (0-10), 12/11 abdominal pain Subjective: Patient reports pain is somewhat managed with tylenol and ketorolac to a 12/11. Patient still reports periumbilical pain and diarrhea. Denies fever, chills, n/v , chest pain, SOB. Review of Systems Constitutional: Reports: see HPI. Objective Last 24 Hrs of Vital Signs/I&O Vital Signs Date Time Temp Pulse Resp B/P B/P Pulse O2 O2 Flow FiO2 Mean Ox Delivery Rate 12/28 1105 52 156/78 12/28 0817 44 168/98 12/28 0817 44 168/98 12/28 0817 44 168/98 12/28 0733 97.4 31 16 112/64 98 12/27 2109 97.9 44 18 170/80 99 Room Air Intake & Output 12/28 1600 12/28 0800 12/28 0000 Intake Total 1600 890 Output Total Balance 1600 890 Intake, IV 1600 830 Intake, Oral 60 Patient 210 lb Weight Physical Exam General Appearance: Alert, Oriented X3, Cooperative, Mild Distress Skin: No Rashes Skin Temp/Moisture Exam: Warm/Dry HEENT: Atraumatic, PERRLA Neck: Supple Cardiovascular: Regular Rate, Normal S1, Normal S2 Lungs: Clear to Auscultation Abdomen: Normal Bowel Sounds, Soft, periumbilical tender to palpation Extremities: No Edema, Normal Pulses Assessment/Plan Assessment: 62 year old male with PMH HTN, HLD, MS (2016 with stenting x2 on ASA and Brilinta) presents after being hospitalized at [facility] for 7 days for presumed treatment of pancreatitis and etoh detox. He was discharged 12/25 at 17:00 with return of symptoms: n/v/d and abdominal pain at 3am 12/26 for which he came to [facility] ED. Work up in the ED shows elevated amylase and lipase, hypokalemia and negative for EtoH. CT abd/pelv is negative for acute pancreatitis or cholecystitis. Patient has clinical presentation and laboratory values consistent with pancreatitis and concerning for concomitant possible c-diff infection. Patient will be admitted to general medicine service for further care of the following problems: Problem List: 1. Acute Pancreatitis 2. Persistent diarrhea 3. Hypokalemia 4. Hypomagnesemia #Acute pancreatitis-likely 2/2 alcohol use disorder vs hypertriglyceridemia vs idiopathic -IVF hydration -NPO -Pain control: IV tylenol, Ketorolac (will reserve opiate use as last resort given patient's h/o opiod abuse including IV heroin and methadone) -Triglyceride level 300s (making this as etiology of pancreatitis less likely since <500) -Baseline EKG for QT status in anticipation of antiemetic use -Awaiting records from [facility] for recent hospitalization #Persistent diarrhea-possible c-diff vs gastritis -stool culture: pending -c-diff toxin: negative -IVF hydration -monitor electrolytes for possible dehydration: replete magnesium and potassium today #Hypokalemia-likely 2/2 >7days of diarrhea -monitor and replete as necessary -3.5 today; will give 40mEq K-dur #Hypomagnesemia-likely 2/2 diarrhea -1.0 will replete -monitor with AM Mag level #Social issues for etoh abuse - consult for desired rehab placement -Alcohol abuse: no need for benzodiazepine or concern for withdrawal given recent ativan taper detox regimen at [facility] for the past 7 days Diet: NPO DVT prophylaxis: ALPS/ambulation/lovenox Code status: FC Problem List: 1. Hypomagnesemia 2. Pancreatitis 3. Hypokalemia 4. Nausea vomiting and diarrhea 5. Abdominal pain Pain Ratin Pain Location: periumbilical pain Pain Goal: Pain 4 or less Pain Plan: see a/p Tomorrow's Labs & Rationales: bep mag
--- NOTE | 2017-12-28 17:51 | ULTRASOUND REPORT ---
EXAMINATION: US ABDOMEN LIMITED CLINICAL INFORMATION: Abdominal pain. COMPARISON: CT abdomen pelvis, 12/26/2017 TECHNIQUE: Real-time imaging of the right upper quadrant abdominal viscera. FINDINGS: PANCREAS: Normal. LIVER: Liver has normal size, contour and echotexture. No focal hepatic lesion or intrahepatic bile duct dilatation. GALLBLADDER: The gallbladder is physiologically distended without evidence of stones, sludge, polyps or pericholecystic fluid. Gallbladder wall measures 0.3 cm thick. No gallbladder wall edema. COMMON BILE DUCT: The common bile duct measures up to 0.7 cm AP diameter. RIGHT KIDNEY: Normal. No hydronephrosis. No renal calculi or focal parenchymal lesions. The kidney measures 10.6 cm in maximum dimension. FREE FLUID: None. IMPRESSION: No specific source of pain is identified. No evidence of cholelithiasis, cholecystitis or biliary tract obstruction.
--- NOTE | 2017-12-28 18:17 | MRI REPORT ---
EXAMINATION: MR CHOLANGIOPANCREATOGRAPHY CLINICAL INFORMATION: Abdominal pain. Elevated lipase. COMPARISON: None. TECHNIQUE: Multiple routine MRI sequences through the abdomen were obtained. Heavily T2-weighted images were performed utilizing a dedicated MRCP technique. Contrast was not utilized for the study. FINDINGS: Biliary system: The common bile duct is normal in course with mildly increased caliber measuring up to 0.8 cm with no evidence for intra-or extrahepatic biliary ductal dilatation. No intraluminal filling defects are appreciated. Gallbladder: No gallstones, gallbladder wall thickening, or pericholecystic fluid. Liver parenchyma is homogeneous in signal with no focal hepatic lesion appreciated. Pancreas: No evidence for pancreatic ductal obstruction. Although the majority of the pancreas appears to drain via the main pancreatic duct and there is a small branch persistence of the duct of Santorini suggesting additional accessory drainage. No obstructive changes. No intraluminal filling defects. There is homogeneous signal to the pancreas with no focal suspicious pancreatic lesion. No visualized abnormalities are seen in the adrenals or spleen. Small T2 bright subcentimeter renal cysts suggested bilaterally. Tiny splenic cysts seen. IMPRESSION: No acute pancreatic or biliary ductal abnormality seen. No intraluminal filling defects. Common bile duct is prominent measuring up to 8 mm in maximal diameter but I do not appreciate intrahepatic ductal dilatation or intraluminal filling defects. Etiology of this prominent duct is uncertain. Gallbladder unremarkable
[2017-12-28 22:07] VITALS: BP 134/72
[2017-12-29 06:28] VITALS: BP 142/84
--- NOTE | 2017-12-29 07:30 | PN- Housestaff ---
Yisel MAYFIELD,[facility] 12/29/17 0729: Subjective Follow-up For: Pancreatitis Persistent diarrhea Subjective: patient continues to have upper abdominal pain, 10/10 in intensity and also continues to have loose watery, had 2 episode this am. Denies any blood in stools, fever/chills, nausea or vomiting. Review of Systems Constitutional: Reports: no symptoms. EENTM: Reports: no symptoms. Cardiovascular: Reports: no symptoms. Respiratory: Reports: no symptoms. Gastrointestinal: Reports: abdominal pain, diarrhea. Genitourinary: Reports: no symptoms. Musculoskeletal: Reports: no symptoms. Skin: Reports: no symptoms. Neurological/Psychological: Reports: no symptoms. Hematologic/Endocrine: Reports: no symptoms. Immunologic/Allergic: Reports: no symptoms. Objective Last 24 Hrs of Vital Signs/I&O Vital Signs Date Time Temp Pulse Resp B/P B/P Pulse O2 O2 Flow FiO2 Mean Ox Delivery Rate 12/29 06 98.2 57 20 142/84 99 12/28 2207 97.8 70 20 134/72 92 Room Air 12/28 2017 60 130/64 12/28 1500 98.2 68 18 142/86 98 12/28 1105 52 156/78 12/28 0817 44 168/98 12/28 0817 44 168/98 12/28 0817 44 168/98 Intake & Output 12/29 0800 12/29 0000 12/28 1600 Intake Total 7848 178 9390 Output Total 1400 Balance 1630 860 320 Intake, IV 3704 192 9469 Intake, Oral 30 60 120 Number 2 Bowel Movements Output, Urine 1400 Patient 210 lb Weight Physical Exam General Appearance: Alert, Oriented X3, Cooperative, Moderate Distress Skin: No Rashes, No Breakdown HEENT: Atraumatic, PERRLA, EOMI Cardiovascular: Regular Rate, Normal S1, Normal S2 Lungs: Clear to Auscultation, Normal Air Movement Abdomen: Normal Bowel Sounds, Soft, Mild pigastric and rt. upper quadrant tenderness Extremities: No Clubbing, No Cyanosis, No Edema Current Medications: Current Medications Sig/Juanita Start time Last Medication Dose Route Stop Time Status Admin Acetaminophen 1,000 MG .STK-MED ONE 12/28 2006 DC IV 12/29 2007 Acetaminophen 1,000 MG .STK-MED ONE 12/28 1121 DC IV 12/28 1122 Acetaminophen 1,000 MG Q8P PRN 12/26 1445 AC 12/29 IV 0100 Amlodipine Besylate 10 MG DAILY 12/27 09 AC 12/28 PO 0817 Aspirin Buffered 81 MG DAILY 12/27 09 AC 12/28 PO 1450 Atorvastatin Calcium 80 MG DAILY 12/27 0900 AC 12/28 PO 0819 Belladonna Alkaloids/ 1 TAB FOUR TIMES A DAY 12/27 2100 AC 12/28 Phenobarbital PO 2010 Carvedilol 12.5 MG BID 12/26 2100 AC 12/28 PO 2017 Chlorhexidine 1 GM .STK-MED ONE 12/28 1404 DC Gluconate TOP 12/28 1405 Enoxaparin Sodium 40 MG DAILY 12/27 09 AC 12/28 SC 1449 Escitalopram Oxalate 10 MG DAILY 12/27 09 AC 12/28 PO 0819 Folic Acid 1 MG DAILY 12/27 0900 AC 12/28 PO 0819 Ketorolac 30 MG Q6P PRN 12/28 1615 DC Tromethamine IV Ketorolac 30 MG Q6P PRN 12/28 1615 AC Tromethamine IV Ketorolac 30 MG Q6P PRN 12/28 1500 DC 12/28 Tromethamine IV 1522 Lactated Ringer's 1,000 ML Q6H 12/26 1445 AC 12/29 IV 0104 Levothyroxine Sodium 0.1 MG DAILY AC 12/27 0700 AC 12/29 PO 0601 Lisinopril 20 MG DAILY 12/27 0900 AC 12/28 PO 0817 Magnesium Chloride 64 MG ONCE ONE 12/28 1530 DC 12/28 PO 12/28 1531 1639 Magnesium Chloride 64 MG DAILY 12/27 1615 AC 12/28 PO 0819 Melatonin 5 MG AT BEDTIME 12/26 2100 AC 12/28 PO 2010 Morphine Sulfate 2 MG ONCE ONE 12/29 0730 DC IV 12/29 0731 Morphine Sulfate 2 MG ONCE ONE 12/28 1615 DC 12/28 IV 12/28 1616 1628 Omeprazole 40 MG DAILY AC 12/29 0700 AC 12/29 PO 0601 Ondansetron HCl 4 MG .STK-MED ONE 12/28 1055 DC IM 12/28 1056 Ondansetron HCl 4 MG Q6P PRN 12/26 1445 AC 12/28 IV 1059 Pantoprazole Sodium 40 MG BID 12/27 2100 DC 12/28 IV 0817 Patient Medication 1 ED ONE ONE 12/28 1430 DC 12/28 Teaching ED 12/28 1431 1450 Spironolactone 25 MG BID 12/26 2099 AC 12/28 PO 2010 Sucralfate 1,000 MG 4 TIMES/DAY 12/27 2099 AC 12/28 PO 2010 Thiamine HCl 100 MG DAILY 12/27 0900 AC 12/28 PO 08 Ticagrelor 90 MG BID 12/26 2099 AC 12/28 PO 2011 Last 24 Hrs of Lab/Jonny Results Last 24 Hrs of Labs/Mics: Laboratory Tests 12/29/17 0615: Sodium Pending, Potassium Pending, Chloride Pending, Carbon Dioxide Pending, Anion Gap Pending, BUN Pending, Creatinine Pending, BUN/Creatinine Ratio Pending , Magnesium Pending 12/28/17 1648: Lactic Acid 1.2 12/28/17 1141: Anion Gap 17 H, Estimated GFR > 60, BUN/Creatinine Ratio 7.5, Magnesium 1.0 L, Vitamin B12 567, Folate 11.6, IgA Pending, Tiss Transglutamin IgG Pending, Tiss Transglutamin IgA Pending, Anti-Gliadin IgG Ab Pending, Anti-Gliadin IgA Ab Pending Microbiology 12/30 727 STOOL: Cryptosporidium Antigen - ORD 12/30 727 STOOL: Giardia Antigen (JONNY) - ORD Assessment/Plan Assessment: 62 year old male with PMH HTN, HLD, [place] (2016 with stenting x2 on ASA and Brilinta) presents after being hospitalized at [facility] for 7 days for presumed treatment of pancreatitis and etoh detox. He was discharged 12/25 at 17:00 with return of symptoms: n/v/d and abdominal pain at 3am 12/26 for which he came to [place] ED. Work up in the ED shows elevated amylase and lipase, hypokalemia and negative for EtoH. CT abd/pelv is negative for acute pancreatitis or cholecystitis. Patient has clinical presentation and laboratory values consistent with pancreatitis and concerning for concomitant possible c-diff infection. Patient will be admitted to general medicine service for further care of the following problems: Problem List: 1. Acute Pancreatitis 2. Persistent diarrhea 3. Hypokalemia 4. Hypomagnesemia #Acute pancreatitis-likely 2/2 alcohol use disorder vs hypertriglyceridemia vs idiopathic -IVF hydration -NPO. -Pain control: IV tylenol, Ketorolac (will reserve opiate use as last resort given patient's h/o opiod abuse including IV heroin and methadone). Morphine x 1 given. -Triglyceride level 300s (making this as etiology of pancreatitis less likely since <500) -Baseline EKG for QT status in anticipation of antiemetic use -Awaiting records from [facility] for recent hospitalization #Persistent diarrhea-possible c-diff vs gastritis -stool culture: negative -c-diff toxin: negative - f/u stool ova and parasites -IVF hydration -monitor electrolytes for possible dehydration: replete magnesium and potassium today. #Hypokalemia-likely 2/2 >7days of diarrhea -monitor and replete as necessary -3.3 today; will give 40mEq K-dur #Hypomagnesemia-likely 2/2 diarrhea -1.0 will replete - Continue Slow-MAg 64mg daily -monitor with AM Mag level #Social issues for etoh abuse - consult for desired rehab placement -Alcohol abuse: no need for benzodiazepine or concern for withdrawal given recent ativan taper detox regimen at [facility] for the past 7 days Diet: NPO DVT prophylaxis: ALPS/ambulation/lovenox Code status: FC Problem List: 1. Pancreatitis Pain Ratin Pain Location: Abdomen Pain Goal: Pain 7 or less Pain Plan: Pain pathway Tomorrow's Labs & Rationales: CBC(Leukocytosis), BEP (elctrolyte abnormalities) Buffy Wadsworth 12/29/17 1316: Attending MD Review Statement Attending Statement Attending MD Statement: examined this patient, discuss w/resident/PA/ASSOCIATE CONSULTING ENGINEER, agreed w/resident/PA/ASSOCIATE CONSULTING ENGINEER, discussed with family, reviewed EMR data (avail), discussed with nursing, discussed with case mgmt, reviewed images, amended to note Attending Assessment/Plan: Patient feeling hungry today. He says he wants to drink. Studies so far remain negative for acute pathoogy. Trial of liquid diet today and monitor for symptoms. GI follow up in case he worsens.
--- NOTE | 2017-12-29 18:59 | PN- Gastroenterology ---
Assessment/Plan GI Assessment/Recommendations: ASSESSMENT: 1. Pancreatitis. Patient has both abdominal pain and elevation of lipase. Has diarrhea to suggest some degree of pancreatic insufficiency although CT scan is unremarkable and without pancreatic calcifications. Pancreatic elastase is still pending 2. Abdominal pain. Patient given history of narcotic use is being treated with Toradol and acetaminophen which is not helping his pain as much as he would like however patient does appear fairly comfortable. 3. History of narcotic abuse RECOMMENDATIONS: 1. Obtain stool for fecal fat, qualitative. 2. Start pancreatic enzyme supplements after stool for fecal fat has been obtained 3. Repeat CBC in a.m. along with BMP 4. Replete potassium, check magnesium and phosphorus as well 5. Advance diet as tolerated 6. Check serum IgG4 Subjective Subjective: Patient continues to have abdominal pain but is tolerating clear liquids. Reports that he continues to have diarrhea after by mouth intake. Is feeling somewhat better. EGD was unrevealing. Objective Vital Signs and I&Os Vital Signs Date Time Temp Pulse Resp B/P B/P Pulse O2 O2 Flow FiO2 Mean Ox Delivery Rate 12/29 1312 81 120/72 12/29 0841 55 154/102 12/29 0841 98.2 55 154/102 12/29 0628 98.2 57 20 142/84 99 12/28 2207 97.8 70 20 134/72 92 Room Air 12/28 2017 60 130/64 Intake & Output 12/29 1600 12/29 0400 12/28 1600 12/28 0400 12/27 1600 12/27 0400 Intake Total 2230 860 3320 890 3620 600 Output Total 1400 600 Balance 2230 860 7792 089 4083 0 Intake, IV 6645 861 2303 830 3200 600 Intake, Oral 630 60 120 60 420 Number 4 2 6 1 Bowel Movements Output, Stool 300 Output, Urine 1400 300 Patient 210 lb 210 lb 200 lb Weight Weight Reported by Patient Measurement Method Physical Exam General Appearance: well developed/nourished, no apparent distress, comfortable Respiratory: normal breath sounds, lungs clear Cardiovascular: regular rate/rhythm, normal S1 and S2 without rub, murmur, or gallop. Abdomen: normal bowel sounds, soft, non-tender, no organomegaly Neurologic/Psychiatric: awake, alert, oriented x 3 Current Medications: Current Medications Sig/Juanita Start time Last Medication Dose Route Stop Time Status Admin Acetaminophen 1,000 MG .STK-MED ONE 12/28 2006 DC IV 12/29 2007 Acetaminophen 1,000 MG Q8P PRN 12/26 1445 DC 12/29 IV 0100 Amlodipine Besylate 10 MG DAILY 12/27 09 AC 12/29 PO 0841 Aspirin Buffered 81 MG DAILY 12/27 0900 AC 12/29 PO 0840 Atorvastatin Calcium 80 MG DAILY 12/27 0900 AC 12/29 PO 0840 Belladonna Alkaloids/ 1 TAB FOUR TIMES A DAY 12/27 2100 AC 12/29 Phenobarbital PO 1813 Carvedilol 12.5 MG BID 12/26 2100 AC 12/29 PO 1312 Enoxaparin Sodium 40 MG DAILY 12/27 09 AC 12/29 SC 0840 Escitalopram Oxalate 10 MG DAILY 12/27 0900 AC 12/29 PO 0840 Folic Acid 1 MG DAILY 12/27 0900 AC 12/29 PO 1032 Ketorolac 30 MG Q6P PRN 12/29 1315 AC Tromethamine IV Ketorolac 30 MG Q6P PRN 12/28 1615 DC Tromethamine IV Lactated Ringer's 1,000 ML Q6H 12/26 1445 AC 12/29 IV 1313 Levothyroxine Sodium 0.1 MG DAILY AC 12/27 0700 AC 12/29 PO 0601 Lisinopril 20 MG DAILY 12/27 0900 AC 12/29 PO 0841 Magnesium Chloride 64 MG BID 12/29 0900 DC 12/29 PO 12/31 2101 1032 Magnesium Chloride 64 MG DAILY 12/27 1615 DC 12/29 PO 0841 Magnesium Sulfate 1 GM ONCE ONE 12/29 1230 DC 12/29 Dextrose/Water 100 ML IV 12/29 1629 1332 Melatonin 5 MG AT BEDTIME 12/26 2100 AC 12/28 PO 2011 Morphine Sulfate 2 MG ONCE ONE 12/29 2300 CAN IV 12/29 2301 Morphine Sulfate 2 MG ONCE ONE 12/29 2100 UNVr IV 12/29 210 Morphine Sulfate 2 MG ONCE ONE 12/29 0730 DC 12/29 IV 12/29 0731 0837 Omeprazole 40 MG DAILY AC 12/29 0700 AC 12/29 PO 0601 Ondansetron HCl 4 MG Q6P PRN 12/26 1445 AC 12/28 IV 1059 Potassium Chloride 40 MEQ ONCE ONE 12/29 0900 DC 12/29 PO 12/29 0901 1032 Spironolactone 25 MG BID 12/26 2100 AC 12/29 PO 0841 Sucralfate 1,000 MG 4 TIMES/DAY 12/27 2100 AC 12/29 PO 1813 Thiamine HCl 100 MG DAILY 12/27 0900 AC 12/29 PO 0841 Ticagrelor 90 MG BID 12/26 2099 AC 12/29 PO 0842 Tramadol HCl 50 MG ONCE ONE 12/29 1815 DC 12/29 PO 12/29 1816 1812 Tramadol HCl 50 MG ONCE ONE 12/29 1330 DC 12/29 PO 12/29 1331 1323 Results Pertinent Lab Results: Laboratory Tests 12/29 12/29 12/28 12/28 12/27 1833 0615 1648 1141 0615 Chemistry Sodium (137 - 145 mmol/L) Pending 140 141 139 Potassium (3.5 - 5.1 mmol/L) Pending 3.3 L 3.5 3.0 L Chloride (98 - 107 mmol/L) Pending 104 104 107 Carbon Dioxide (22 - 30 mmol/L) Pending 23 20 L 19 L Anion Gap (5 - 16) Pending 13 17 H 13 BUN (9 - 20 mg/dL) Pending 9 6 L 8 L Creatinine (0.7 - 1.2 mg/dL) Pending 0.9 0.8 0.9 Estimated GFR (>60 ml/min) > 60 > 60 > 60 BUN/Creatinine Ratio (7 - 25 %) Pending 10.0 7.5 8.9 Lactic Acid (0.7 - 2.1 mmol/L) 1.2 Magnesium (1.6 - 2.3 mg/dL) Pending 1.1 L 1.0 L 1.0 L Vitamin B12 (239 - 931 pg/mL) 567 Folate (2.76 - 20.0 ng/mL) 11.6 Immunology IgA Pending Tiss Transglutamin IgG Pending Tiss Transglutamin IgA Pending Anti-Gliadin IgG Ab Pending Anti-Gliadin IgA Ab Pending 12/26 1916 Other Body Source Stl Pancreat Elastase 1 Pending Toxicology Urine Opiates Screen (>2000 NG/ML) < 100 Methadone Screen (>300 NG/ML) 59 Barbiturate Screen (>200 NG/ML) 442 H Ur Phencyclidine Scrn (>25 NG/ML) < 6.00 Amphetamines Screen (>1000 NG/ML) < 100 U Benzodiazepines Scrn (>200 NG/ML) > 800 H Urine Cocaine Screen (>300 NG/ML) < 50 Urine Cannabis Screen (>50 NG/ML) < 5.00
[2017-12-29 22:38] VITALS: BP 124/61
[2017-12-30 06:50] VITALS: BP 144/76
[2017-12-30 08:31] LABS: ABSOLUTE BASOPHIL COUNT 0.1 /CUMM (0.0-0.2); ABSOLUTE EOSINOPHIL COUNT 0.4 /CUMM (0.0-0.7); ABSOLUTE GRANULOCYTE CT 3.6 /CUMM (1.4-6.5); ABSOLUTE LYMPH COUNT 1.3 /CUMM (1.2-3.4); ABSOLUTE MONOCYTE COUNT 0.5 /CUMM (0.10-0.60); EOSINOPHIL % 7.2 % (0-5); GRANULOCYTE % 61.6 % (42.2-75.2); MEAN CORPUSCULAR HGB 32.6 PG (27.0-31.0); MEAN CORPUSCULAR HGB CONC 34.5 G/DL (33.0-37.0); MEAN CORPUSCULAR VOLUME 94.6 FL (80.0-94.0); MEAN PLATELET VOLUME 8.1 FL (7.4-10.4); PLATELET COUNT 226 /CUMM (130-400); RBC DISTRIBUTION WIDTH 15.7 % (11.5-14.5); RED BLOOD CELL CT 3.32 /CUMM (4.70-6.10)
[2017-12-30 09:13] LABS: HEMATOCRIT 31.4 % (42-52); WHITE BLOOD CELL COUNT 5.8 /CUMM (4.8-10.8)
--- NOTE | 2017-12-30 09:20 | PN- Housestaff ---
See Addendum Subjective Follow-up For: abdominal pain diarrhea pancreatitis Complaints: no complaints Subjective: Patient reports he is tolerating and liquid diet and would like to advance to regular diet at lunch. He feels much improved with abdominal pain 6/10 and resolving diarrhea. He had formed stool this morning. Denies n/v, chest pain, SOB, fever, chills Review of Systems Constitutional: Reports: see HPI. Objective Last 24 Hrs of Vital Signs/I&O Vital Signs Date Time Temp Pulse Resp B/P B/P Pulse O2 O2 Flow FiO2 Mean Ox Delivery Rate 12/30 0836 60 124/82 12/30 0835 60 124/82 12/30 0835 60 124/82 12/30 0650 98.1 54 20 144/76 95 12/29 2238 97.9 57 20 12461 98 Room Air 12/295 57 12461 12/29 1312 81 120/72 Intake & Output 12/30 1600 12/30 0800 12/30 0000 Intake Total 2080 1600 Output Total Balance 2080 1600 Intake, IV 1600 1600 Intake, Oral 480 Number 3 Bowel Movements Physical Exam General Appearance: Alert, Oriented X3, Cooperative, No Acute Distress Skin: No Rashes Skin Temp/Moisture Exam: Warm/Dry HEENT: Atraumatic, PERRLA Neck: Supple Cardiovascular: Regular Rate, Normal S1, Normal S2, No Murmurs Lungs: Clear to Auscultation Abdomen: Normal Bowel Sounds, Soft, minimal tenderness to palpation periumbilical region Extremities: No Edema, Normal Pulses Assessment/Plan Assessment: 62 year old male with PMH HTN, HLD, [place] (2016 with stenting x2 on ASA and Brilinta) presents after being hospitalized at [facility] for 7 days for presumed treatment of pancreatitis and etoh detox. He was discharged 12/25 at 17:00 with return of symptoms: n/v/d and abdominal pain at 3am 12/26 for which he came to [place] ED. Work up in the ED shows elevated amylase and lipase, hypokalemia and negative for EtoH. CT abd/pelv is negative for acute pancreatitis or cholecystitis. Patient has clinical presentation and laboratory values consistent with pancreatitis and concerning for concomitant possible c-diff infection. Patient will be admitted to general medicine service for further care of the following problems: Problem List: 1. Acute Pancreatitis 2. Persistent diarrhea 3. Hypokalemia 4. Hypomagnesemia #Acute pancreatitis-likely 2/2 alcohol use disorder vs hypertriglyceridemia vs idiopathic -Advancing diet as tolerated -Pain control: IV tylenol, Ketorolac (will reserve opiate use as last resort given patient's h/o opiod abuse including IV heroin and methadone). Morphine x 1 given. -Triglyceride level 300s (making this as etiology of pancreatitis less likely since <500) -Baseline EKG for QT status in anticipation of antiemetic use -[facility] records for recent hospitalization obtained. #Persistent diarrhea-possible c-diff vs gastritis -stool culture: negative -c-diff toxin: negative - f/u stool ova and parasites -IVF hydration: discontinue today as PO intake >500 -monitor electrolytes #Hypokalemia-likely 2/2 >7days of diarrhea -monitor and replete as necessary -3.7 today #Hypomagnesemia-likely 2/2 diarrhea -checking levels today -replete with SloMag #Social issues for etoh abuse - consult for desired rehab placement -Alcohol abuse: no need for benzodiazepine or concern for withdrawal given recent ativan taper detox regimen at [facility] for the past 7 days Diet: Clears-advance to regular today Problem List: 1. Pancreatitis 2. Hypokalemia 3. Hypomagnesemia Pain Ratin Pain Location: abdomen Pain Goal: Pain 4 or less Pain Plan: see a/p Tomorrow's Labs & Rationales: bep mag
[2017-12-30 14:56] VITALS: BP 128/62
[2017-12-30 21:39] VITALS: BP 130/78
[2017-12-31 07:00] VITALS: BP 152/76
--- NOTE | 2017-12-31 08:10 | PN- Housestaff ---
See Addendum Subjective Follow-up For: pancreatitis abdominal pain diarrhea Complaints: no complaints Subjective: Patient states he feels much improved. He had a formed BM this morning that was non bloody. He is tolerating a regular diet for 3 meals now. He reports his abdominal pain is 5/10 and manageable. Of Note: patient was suppose go to a [facility] alcohol treatment program. He has changed his mind and no longer allowing SW to contact the program on his behalf. He states he needs to go home and has things to do. He promises he will not drink again. He is considering going to an IOP in [place] once discharged. Denies fever, chills, n/v, chest pain, SOB. Review of Systems Constitutional: Reports: see HPI. Objective Last 24 Hrs of Vital Signs/I&O Vital Signs Date Time Temp Pulse Resp B/P B/P Pulse O2 O2 Flow FiO2 Mean Ox Delivery Rate 12/31 0806 52 152/76 12/31 0806 52 152/76 12/31 0805 52 152/76 12/31 0700 98.1 52 20 152/76 97 12/30 2229 61 130/78 12/30 2139 98.0 61 18 130/78 98 Room Air 12/30 1456 98.8 68 18 128/62 93 Intake & Output 12/31 1600 12/31 0800 12/31 0000 Intake Total 120 100 Output Total Balance 120 100 Intake, IV 20 Intake, Oral 100 100 Physical Exam General Appearance: Alert, Oriented X3, Cooperative, No Acute Distress Skin: No Rashes Skin Temp/Moisture Exam: Warm/Dry HEENT: Atraumatic, PERRLA Neck: Supple Cardiovascular: Regular Rate, Normal S1, Normal S2, No Murmurs Lungs: Clear to Auscultation Abdomen: Normal Bowel Sounds, Soft, No Tenderness Extremities: No Edema, Normal Pulses Assessment/Plan Assessment: 62 year old male with PMH HTN, HLD, [place] (2016 with stenting x2 on ASA and Brilinta) presents after being hospitalized at [facility] for 7 days for presumed treatment of pancreatitis and etoh detox. He was discharged 12/25 at 17:00 with return of symptoms: n/v/d and abdominal pain at 3am 12/26 for which he came to [place] ED. Work up in the ED shows elevated amylase and lipase, hypokalemia and negative for EtoH. CT abd/pelv is negative for acute pancreatitis or cholecystitis. Patient has clinical presentation and laboratory values consistent with pancreatitis and concerning for concomitant possible c-diff infection. Patient will be admitted to general medicine service for further care of the following problems: Problem List: 1. Acute Pancreatitis 2. Persistent diarrhea 3. Hypokalemia 4. Hypomagnesemia #Acute pancreatitis-likely 2/2 alcohol use disorder vs hypertriglyceridemia vs idiopathic -Tolerating regular diet -Pain control: IV tylenol, Ketorolac (will reserve opiate use as last resort given patient's h/o opiod abuse including IV heroin and methadone). Morphine given sparingly -Triglyceride level 300s (making this as etiology of pancreatitis less likely since <500) -[facility] records for recent hospitalization obtained. #Persistent diarrhea-possible c-diff vs gastritis -stool culture: negative -c-diff toxin: negative -f/u stool ova and parasites -IVF hydration: discontinue today as PO intake >500 -monitor electrolytes #Hypokalemia-likely 2/2 >7days of diarrhea -monitor and replete as necessary -3.6 today #Hypomagnesemia-likely 2/2 diarrhea -1.3 today -replete with SloMag #Social issues for etoh abuse - consult: patient now refusing treatment programs and will consider IOP in [place] on his own. -Alcohol abuse: no need for benzodiazepine or concern for withdrawal given recent ativan taper detox regimen at [facility] for the past 7 days Diet: Regular and tolerating well. Problem List: 1. Abdominal pain 2. Pancreatitis 3. Hypokalemia 4. Hypomagnesemia 5. Nausea vomiting and diarrhea Pain Ratin Pain Location: abdomen Pain Goal: Pain 4 or less Pain Plan: see a/p Tomorrow's Labs & Rationales: none
--- NOTE | 2017-12-31 13:53 | Discharge Summary ---
Visit Information Visit Dates Admission Date: 12/26/17 Discharge Date: 12/31/17 Hospital Course Course Attending Physician: Peter Stover MD Primary Care Physician: Patient Has No Primary Care Dr Hospital Course: Mr. Grant is a 62 year old male with PMH HTN, HLD, CA (2016 with stenting x2 on ASA and Brilinta) presents after being hospitalized at [facility] for 7 days for presumed treatment of pancreatitis and etoh detox. He was discharged 12/25 at 17 :00 with return of symptoms: n/v/d and abdominal pain at 3am 12/26 for which he came to [place] ED. Work up in the ED shows elevated amylase and lipase, hypokalemia and negative for EtoH. CT abd/pelv is negative for acute pancreatitis or cholecystitis. Patient has clinical presentation and laboratory values consistent with pancreatitis and concerning for concomitant possible c- diff infection. Patient was admitted to general medicine service for further care of the following problems: Problem List: 1. Acute Pancreatitis 2. Persistent diarrhea 3. Hypokalemia 4. Hypomagnesemia Admission Data: T98.6 P94 RR20 BP114/76 [id number] Significant Labs: WBC 13.0, K3.3, T. Bili 1.4, Amylase 223, Lipase 2797, EtoH<10 CT abd/pelv:1. No evidence of acute pancreatitis. The pancreas appears unremarkable. 2. No evidence of acute cholecystitis. 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 -Triglyceride level 300s (making this as etiology of pancreatitis less likely since <500) -Will obtain baseline EKG for QT status in anticipation of antiemetic use -records from [facility] for recent hospitalization obtained -EGD on 12/28: possible isolated gastric varix otherwise normal. -MRCP and RUQ US were negative for pathology #Persistent diarrhea-likely gastritis -stool culture and c-diff toxin: negative -IVF hydration -monitored electrolytes #Hypokalemia and hypomagnesemia were repleted and monitored throughout the hospital course. #Social issues for etoh abuse -SW consult: patient refused treatment programs and will consider IOP in [place] on his own. -Alcohol abuse: no need for benzodiazepine or concern for withdrawal given recent ativan taper detox regimen at [facility] for the past 7 days On December 31, 2017 Mr. Grant had improved significantly and was ready to be discharged home. He was given counseling case manager to continue his sobriety with correction rehab or IOP and he will take this into consideration. He was give Rx for Magnesium, Sulcrafate, and pancreatic enzymes. He will follow up with his PCP ( one is not listed on file) as an outpatient. He was also instructed to follow up with GI: Dr. Stahl within two weeks of discharge. Allergies: Coded Allergies: No Known Allergies (12/26/17) Disposition Summary Disposition Principal Diagnosis: pancreatitis Additional Diagnosis: history of recent alcohol detox diarrhea Discharge Disposition: home or self care Discharge Instructions General Discharge Information Code Status: Full Code Patient's Diet: heart healthy Patient's Activity: as tolerated Follow-Up Instructions/Appts: Please continue your sobriety with IOP or consider correction rehab Take all medications as prescribed Follow up with your PCP Do not consume alcohol Medications at Discharge Discharge Medications: Continue taking these medications: Folic Acid (Folic Acid) 1 MG TABLET 1 Tablet ORAL DAILY Qty = 30 Comments: LAST GIVEN 12/31/17 @ 0800 Thiamine HCl (B-1) 100 MG TABLET 1 Tablet ORAL DAILY Comments: LAST GINVE 12/31/17 @ 0800 Pantoprazole Sodium (Pantoprazole Sodium) 40 MG TABLET. 1 Tablet ORAL DAILY Qty = 90 Comments: LAST GIVEN 12/31/17 @ 0600 Amlodipine Besylate (Amlodipine Besylate) 10 MG TABLET 1 Tablet ORAL DAILY Qty = 90 Comments: LAST GIVEN 12/31/17 @ 1700 Aspirin (Ecotrin*) 81 MG TABLET. 1 Tablet ORAL DAILY Comments: LAST GIVNE 12/31/17 2 0800 Atorvastatin Calcium (Atorvastatin Calcium) 80 MG TABLET 1 Tablet ORAL DAILY Qty = 90 Comments: LAST GIVNE 12/31/17 @ 0800 Ticagrelor (Brilinta) 90 MG TABLET 1 Tablet ORAL TWICE DAILY Qty = 180 Comments: LAST GIVEN 12/31/17 @ 0800 Carvedilol (Carvedilol) 12.5 MG TABLET 1 Tablet ORAL TWICE DAILY Qty = 180 Comments: LAST GIVEN 12/31/17 @ 0800 Escitalopram Oxalate (Escitalopram Oxalate) 10 MG TABLET 1 Tablet ORAL DAILY Qty = 90 Comments: LAST GIVEN 12/31/17 @ 0800 Levothyroxine Sodium (Levothyroxine Sodium) 100 MCG TABLET 1 Tablet ORAL DAILY BEFORE BREAKFAST Qty = 90 Comments: LAST GIVNE 12/31/17 @ 0600 Lisinopril (Lisinopril) 40 MG TABLET 0.5 Tablet ORAL DAILY Qty = 45 Comments: LAST GIVEN 12/31/17 2 0800 Spironolactone (Spironolactone) 25 MG TABLET 1 Tablet ORAL TWICE DAILY Qty = 180 Comments: LAST GIVEN 12/31/17 @ 0800 Start taking the following new medications: Magnesium Chloride (Slow-Mag) 71.5 MG TABLET. 2 Tablet ORAL TWICE DAILY Qty = 120 No Refills Instructions: . Comments: LAST GIVEN 12/31/17 @ 0800 Lipase/Protease/Amylase (Zenpep Dr 5,000 Units Capsule) [id number] CAPSULE. 50,000 Units ORAL WITH MEALS Qty = 100 No Refills Instructions: . Comments: CREON GIVEN 12/31/17 @ 1700 Sucralfate (Carafate) 1 GRAM TABLET 1,000 Milligram ORAL 4 TIMES A DAY as needed for GI upset Qty = 120 No Refills Instructions: . Comments: LAST GIVEN 12/31/17 @ 1700 Copies To: Favio MAYFIELD,Katherin Attending MD Review Statement Documenting Attending: Peter Stover MD Other Findings: Agree with the above summary of care and plan of care upon discharge. The patient elected against residential EtOH program and states he wishes IOP in [place].
[2017-12-31 14:49] VITALS: BP 126/70
[2017-12-31] MEDS ORDERED: ZENPEP DR 5,001 EACH PO ×2 (15:28→17:01)
[2017-12-31] MEDS ORDERED: SLOW-MAG71.5 MG PO ×2 (15:28→17:01)
[2017-12-31] MEDS ORDERED: CARAFATE1 G1 PO ×2 (15:28→17:01)
--- NOTE | 2017-12-31 17:05 | Patient Discharge Instructions ---
Discharge Instructions General Discharge Information You were seen/treated for: diarrhea pancreatitis You had these procedures: EGD MRCP RUQ ultrasound all of which were negative Watch for these problems: fever, return of severe abdominal pain, nausea, vomiting, diarrhea, chest pain, shortness of breath Special Instructions: take all medications as prescribed do not drink alcohol; consider IOP or [facility] rehab follow up with your PCP Diet Continue normal diet: Yes Recommended Diet: Low Fat Activity Full Activity/No Limits: Yes Acute Coronary Syndrome Inclusion Criteria At DC or during hospital stay patient has or had the following: ACS DIAGNOSIS No Discharge Core Measures Meds if any: Prescribed or Continued at Discharge Meds if any: NOT Prescribed or Continued at Discharge Congestive Heart Failure Inclusion Criteria At DC or during hospital stay patient has or had the following: CHF DIAGNOSIS No Discharge Core Measures Meds if any: Prescribed or Continued at Discharge Meds if any: NOT Prescribed or Continued at Discharge Cerebrovascular accident Inclusion Criteria At DC or during hospital stay patient has or had the following: CVA/TIA Diagnosis No Discharge Core Measures Meds if any: Prescribed or Continued at Discharge Meds if any: NOT Prescribed or Continued at Discharge Venous thromboembolism Inclusion Criteria VTE Diagnosis No VTE Type NONE VTE Confirmed by (Test) NONE Discharge Core Measures - Per Current guidelines, there needs to be overlap - treatment for the first 5 days of Warfarin therapy. - If discharged on Warfarin prior to 5 days of - overlap therapy, the patient will need to be - assessed for post discharge needs including - *Post discharge parental anticoagulation - *Warfarin and/or parental anticoagulation education - *Follow up date to check INR post discharge At least 5 days overlap therapy as Inpatient No Meds if any: Prescribed or Continued at Discharge Note: Overlap Therapy is Warfarin and Anticoagulant Meds if any: NOT Prescribed or Continued at Discharge
== END 2017-12-31 18:22 | DRG 282 ==
LOC: ERH 08:35 → ERHI 15:40 → 2NB 15:40 → ENRESERV 16:00 → ENTRNSPT 16:32 → CMPTRNSPT 16:38 → 2NB 16:40 → ENPENDDIS 12-31 16:08 → 2NB 12-31 18:22
PROVIDERS: Internal Medicine; Physician Assistant
PROC: 0DJ08ZZ Inspection of Upper Intestinal Tract, Via Natural or Artificial Opening Endoscopic (ICD-10-PCS; principal; 2017-12-28)
DX: K85.20 Alcohol induced acute pancreatitis without necrosis or infection (principal); I10 Essential (primary) hypertension; E78.5 Hyperlipidemia, unspecified; I25.10 Atherosclerotic heart disease of native coronary artery without angina pectoris; E03.9 Hypothyroidism, unspecified; E87.6 Hypokalemia; R10.9 Unspecified abdominal pain; I25.2 Old myocardial infarction; R19.7 Diarrhea, unspecified; F10.20 Alcohol dependence, uncomplicated; Y90.0 Blood alcohol level of less than 20 mg/100 ml; F32.9 Major depressive disorder, single episode, unspecified; Z98.61 Coronary angioplasty status; Z98.1 Arthrodesis status; E83.42 Hypomagnesemia
CPT/HCPCS: 2NBP; 74181; 83516; 36415; 36592; 74177; 80307; 82436; 82784; 87015; 87045; 87328; 87329; 87899; 87899-59; 93005; 93010; 96374; 96375; G0480; J0131; J1650; J1885; J2405; J3490; J7120